=== PATIENT | male | born 1990 | race Two or more races ===

== ENCOUNTER 2016-09-12 02:18 | Emergency (ER) | payer OTHER ==
--- NOTE | 2016-09-12 03:14 | ED ---
Greg Vega Anna, scribed for Darren Boucher MD on 09/12/16 at 0230 . Substance Abuse/Use - HPI Summary HPI Summary: Patient is a 26 y/o male BIBA to [facility] presenting with substance abuse that began this evening. Patient is experiencing nausea and emesis. EMS reports that the patients friends said the patient had been drinking. LEVEL 5 CAVEAT UNABLE TO OBTAIN FULL HISTORY DUE TO ALTERED MENTAL STATUS. - History Of Current Complaint Stated Complaint: ALCOHOL CONSUMPTION Time Seen by Provider: 09/12/16 02:21 Hx Obtained From: EMS - Allergies/Home Medications Allergies/Adverse Reactions: Allergies Allergy/AdvReac Type Severity Reaction Status Date / Time No Known Allergies Allergy Verified 09/12/16 02:45 PMH/Surg Hx/FS Hx/Imm Hx Previously Healthy: Yes - Family History Family History: LEVEL 5 CAVEAT UNABLE TO OBTAIN FULL HISTORY DUE TO ALTERED MENTAL STATUS. - Social History Occupation: Student Lives: With Family Alcohol Use: Occasionally Review of Systems - ROS Summary Review of Systems Summary: LEVEL 5 CAVEAT UNABLE TO OBTAIN FULL HISTORY DUE TO ALTERED MENTAL STATUS. Positive: Vomiting, Nausea All Other Systems Reviewed And Are Negative: No Physical Exam Triage Information Reviewed: Yes Vital Signs On Initial Exam: Initial Vitals Temp Pulse Resp BP Pulse Ox 97.1 F 68 17 92/54 100 09/12/16 02:25 09/12/16 02:25 09/12/16 02:25 09/12/16 02:25 09/12/16 02:25 Vital Signs Reviewed: Yes Appearance: Positive: Well-Appearing, No Pain Distress Skin: Positive: Warm Head/Face: Positive: Normal Head/Face Inspection Eyes: Positive: EOMI, ANTONI ENT: Positive: Hearing grossly normal Neck: Positive: Supple Respiratory/Lung Sounds: Positive: Clear to Auscultation, Breath Sounds Present Cardiovascular: Positive: RRR Abdomen Description: Positive: Nontender, Soft Bowel Sounds: Positive: Present Musculoskeletal: Positive: Strength/ROM Intact Neurological: Positive: Sensory/Motor Intact, Alert, Oriented to Person Place, Time, Normal Gait Diagnostics - Vital Signs Vital Signs Temp Pulse Resp BP Pulse Ox 09/12/16 02:31 65 97 09/12/16 02:25 97.1 F 68 17 92/54 100 - Laboratory Lab Results: Lab Results 09/12/16 Range/Units 02:28 Serum Alcohol 148 H (<10) mg/dL Lab Statement: Any lab studies that have been ordered have been reviewed, and results considered in the medical decision making process. Re-Evaluation - Re-Evaluation First Eval Re-Evaluation Time: 03:44 Change: Improved Comment: Patient is now alert and able to walk independently. His friend has arrived and is able to take him home. Pt will be discharged. Course/Dx - Course Assessment/Plan: Patient is a 26 y/o male BIBA to [facility] presenting with substance abuse that began this evening. Patient is experiencing nausea and emesis. EMS reports that the patients friends said the patient had been drinking. Labs reveal serum alcohol level of 148. Patient will be discharged. Patient is agreeable with this plan. - Diagnoses Provider Diagnoses: Alcoholic intoxication Discharge - Discharge Plan Condition: Improved Disposition: HOME Patient Education Materials: Alcohol Intoxication (ED) Referrals: MARCO Grajeda [Primary Care Provider] - Additional Instructions: Return to ED for new or worsening symptoms. The documentation as recorded by the Greg loza Anna accurately reflects the service I personally performed and the decisions made by me, Darren Boucher MD.
[2016-09-12 03:52] VITALS: BP 114/69
== END 2016-09-12 03:52 | disposition home or self-care (01) ==
LOC: ED 02:18
DX: F10.129 Alcohol abuse with intoxication, unspecified (principal); Y90.6 Blood alcohol level of 120-199 mg/100 ml
CPT/HCPCS: 36415; 80320; 99282; G0480